=== PATIENT | female | born 1950 | race Two or more races ===

== ENCOUNTER 2018-08-04 12:04 | Emergency (ER) | payer OTHER ==
[~2018-08-04] VITALS: Ht 167.6 cm; Wt 74.4 kg
[2018-08-04] MEDS ORDERED: COZAAR100 MG PO (12:14)
[2018-08-04] MEDS ORDERED: MONTELUKAST SOD10 MG PO (12:14)
[2018-08-04] MEDS ORDERED: LEVOTHYROXINE50 MCG PO (12:14)
[2018-08-04] MEDS ORDERED: ALENDRONATE SOD35 MG PO (12:15)
[2018-08-04] MEDS ORDERED: LIPITOR20 MG PO (12:15)
[2018-08-04] MEDS ORDERED: NAPROXEN500 MG PO (14:43)
== END 2018-08-04 14:47 | disposition home or self-care (01) ==
LOC: ER 12:04
DX: S30.0XXA Contusion of lower back and pelvis, initial encounter (principal); M54.5 Low back pain; W01.198A Fall on same level from slipping, tripping and stumbling with subsequent striking against other object, initial encounter; Y93.89 Activity, other specified; Y92.018 Other place in single-family (private) house as the place of occurrence of the external cause; Y99.8 Other external cause status

== ENCOUNTER 2019-02-14 13:08 | Outpatient (CLI) | payer OTHER ==
[~2019-02-14 13:08] MED LIST: ALENDRONATE SOD35 MG PO; COZAAR100 MG PO; LEVOTHYROXINE50 MCG PO; LIPITOR20 MG PO; MONTELUKAST SOD10 MG PO; NAPROXEN500 MG PO
== END 2019-02-14 13:20 | disposition home or self-care (01) ==
LOC: RAD 501 13:08
DX: M12.512 Traumatic arthropathy, left shoulder (principal)

== ENCOUNTER → 2021-01-19 | Emergency (ER) | payer OTHER ==
[~2021-01-19] VITALS: Ht 167.6 cm; Wt 71.7 kg
[~2021-01-19] MED LIST changes: +ATROVENT HFA12.9 GM; +BRIMONIDINE TART5 M1; +COZAAR25 MG; +UCERIS9 MG
== END | disposition home or self-care (01) ==
LOC: ER 16:10
DX: S00.03XA Contusion of scalp, initial encounter (principal); M54.2 Cervicalgia; W10.8XXA Fall (on) (from) other stairs and steps, initial encounter; Y93.01 Activity, walking, marching and hiking; Y92.512 Supermarket, store or market as the place of occurrence of the external cause; Y99.8 Other external cause status

== ENCOUNTER 2023-04-01 08:50 | Outpatient (CLI) | payer OTHER | END 2023-04-01 09:03 | disposition home or self-care (01) | LOC: RX STUDY 08:50 | PROVIDERS: ATTEND Internal Medicine Gastroenterology | DX: R13.0 Aphagia (principal) ==

== ENCOUNTER 2025-10-01 10:09 | Outpatient (CLI) | payer OTHER | END 2025-10-01 10:11 | disposition home or self-care (01) | LOC: RAD 10:09 | DX: J47.0 Bronchiectasis with acute lower respiratory infection (principal); J47.9 Bronchiectasis, uncomplicated ==